=== PATIENT | female | born 1945 | race Caucasian/White ===

== ENCOUNTER 2019-08-16 15:36 | Observation (INO) | payer OTHER ==
[~2019-08-16] VITALS: Ht 152.4 cm; Wt 51.7 kg
[2019-08-16] MEDS ORDERED: METOPROLOL TARTRATE 25 MG TAB PO NR (16:45)
[2019-08-16] MEDS ORDERED: ASPIRIN 81 MG CHEW TAB PO NR (16:45)
[2019-08-16] MEDS ORDERED: METOPROLOL TARTRATE INJ 1 MG/ML VIAL IV ONE (17:15)
[2019-08-16] MEDS ORDERED: ENOXAPARIN SODIUM INJ 100 MG/ML SYR SC ONE (18:00)
[2019-08-16] MEDS ORDERED: NITROGLYCERIN 0.4 MG SUBL SL PRN (18:00)
[2019-08-16] MEDS ORDERED: ONDANSETRON HCL INJ 2MG/ML 2ML 2 MG/ML VIAL IV PRN (18:00)
[2019-08-16] MEDS ORDERED: ENOXAPARIN SOD INJ 60 MG/0.6 ML SYR SC NR (18:15)
[2019-08-16] MEDS ORDERED: METOPROLOL TARTRATE 50 MG TAB PO NR (18:15)
--- NOTE | 2019-08-16 18:16 | Diagnostic Imaging Report ---
EXAMINATION: PA and lateral views of the chest. COMPARISON: None CLINICAL HISTORY: Short of breath DISCUSSION: Lines/tubes: None. Lungs: Emphysema change. No consolidation or edema. Pleura: There is no pleural effusion or pneumothorax. Heart and mediastinum: The cardiomediastinal silhouette is normal. Bones and soft tissues: No acute bony abnormalities. IMPRESSION: No acute cardiopulmonary abnormalities. Signed by: Dr. Javier Reddy M.D. on 08/16/2019 6:14 PM
[2019-08-16 18:23] LABS: BASOPHILS % 0.4 % (0.0-1.0); EOSINOPHILS % 0.4 % (0.0-6.0); HEMATOCRIT 46.2 % (34.2-44.1); HEMOGLOBIN 13.9 g/dL (12.0-16.0); LYMPHOCYTES # (AUTO) 2.2 (1.0-3.2); LYMPHOCYTES % 29.6 % (18.0-39.1); MEAN CORPUSCULAR HEMOGLOBIN 28.1 pg (28-32); MEAN CORPUSCULAR HGB CONC 30.1 g/dL (31-35); MEAN CORPUSCULAR VOLUME 93.5 fL (81-99); MONOCYTES # (AUTO) 0.3 (0.2-0.8); MONOCYTES % 4.7 % (4.4-11.3); NEUTROPHILS # (AUTO) 4.7 (2.1-6.9); NEUTROPHILS % 64.6 % (38.7-80.0); PLATELET COUNT 294 x10e3/uL (140-360); RED BLOOD COUNT 4.94 x10e6/uL (3.6-5.1); RED CELL DISTRIBUTION WIDTH 14.4 % (11.7-14.4)
[2019-08-16 18:34] LABS: INR 0.92; PROTHROMBIN TIME 12.5 seconds (11.9-14.5)
[2019-08-16 18:35] LABS: PARTIAL THROMBOPLASTIN TIME 29.2 seconds (23.8-35.5)
[2019-08-16 18:43] LABS: ALANINE AMINOTRANSFERASE 28 IU/L (0-55); ALBUMIN 4.4 g/dL (3.5-5.0); ALBUMIN/GLOBULIN RATIO 1.2 (0.8-2.0); ALKALINE PHOSPHATASE 163 IU/L (40-150); ANION GAP 14.7 mmol/L (8-16); BLOOD UREA NITROGEN 21 mg/dL (7-26); BUN/CREATININE RATIO 25 (6-25); CARBON DIOXIDE 22 mmol/L (22-29); CHLORIDE 107 mmol/L (98-107); CREATINE KINASE 56 IU/L (29-168); CREATININE, SERUM 0.84 mg/dL (0.57-1.11); EST GLOMERULAR FILTRATION RATE > 60 ML/MIN (60-); GLUCOSE 112 mg/dL (74-118); MAGNESIUM 2.2 MG/DL (1.3-2.1); POTASSIUM 3.7 mmol/L (3.5-5.1); SODIUM 140 mmol/L (136-145)
[2019-08-16 19:04] LABS: THYROID STIMULATING HORMONE 1.252 uIU/mL (0.350-4.940)
[2019-08-16] MEDS: METOPROLOL TARTRATE 25 MG TAB PO SCH (19:04)
--- OUTSIDE RECORDS SUMMARY | 2019-08-16 19:44 | XMS REPORT ---
Author Author [facility] Organization [facility] Address Unknown Phone Unavailable Care Team Providers Care Camouflage Specialist Name Role Phone Maricarmen MATTSON Unavailable Unavailable Payers Payer Name Policy Type Policy Number Effective Date Expiration Date Problems This patient has no known problems. Allergies, Adverse Reactions, Alerts Allergy Name Allergy Type Status Severity Reaction(s) Onset Date Inactive Date Treating Clinician Comments codeine DA Active U 2018-04-04 00:00:00 codeine DA Active U 2016-06-01 00:00:00 Medications This patient has no known medications. Results Test Description Test Time Test Comments Text Results Atomic Results Result Comments CHEST 2 VIEWS 2019-08-16 18:13:00 [facility] [address] [place], [place] [address] Patient Name: JOSE CRUZ MR #: [id number] : 1945 Age/Sex: 74/F Req #: [id number] Adm Physician: Ordered by: YORDAN MATTSON MD Report #: [id number] Location: ER Room/Bed: Procedure: [id number] DX/CHEST 2 VIEWS Exam Date: 08/16/19 Exam Time: 1741 REPORT STATUS: Signed EXAMINATION: PA and lateral views of the chest. CO MPARISON: None CLINICAL HISTORY: Short of breath DISCUSSION: Lines/tubes: None. Lungs: Emphysema change. No consolidation or edema. Pleura: There is no pleural effusion or pneumothorax. Heart and mediastinum: The cardiomediastinal silhouette is normal. Bones and soft tissues: No acute bony abnormalities. IMPRESSION: No acute cardiopulmonary abnormalities. Signed by: Dr. Arnold Olivia M.D. on 08/16/2019 6:14 PM Dictated By: ARNOLD OLIVIA MD 13 Transcribed By: MARGO on 08/16/191813 COPY TO: YORDAN MATTSON MD
--- NOTE | 2019-08-16 20:00 | NUR ---
Received patient from ER.Patient offered a bed, safety and fall precaution maintained, patient is currently stable will continue o monitor.
[2019-08-16 20:45] VITALS: BP 114/67
[2019-08-16] MEDS ORDERED: FAMOTIDINE 20 MG/2 ML VIAL IV SCH (21:00)
[2019-08-16 22:51] VITALS: BP 104/73
[2019-08-17] VITALS: BP 91/57
--- NOTE | 2019-08-17 00:24 | Consultation ---
DATE OF CONSULTATION: 08/16/2019 Cardiac Consultation REASON FOR CONSULTATION: Atrial fibrillation with fast ventricular response. HISTORY OF PRESENT ILLNESS: A 74-year-old lady, who is poorly historian. The patient is in her usual status of health. She does have history of bipolar disorder and hyperlipidemia, in addition to some pain and she takes gabapentin for that. The patient had past history in 2018 for atrial fibrillation, placed on Xarelto and Cardizem, but she stopped taking both medication. She was in her usual status of health until approximately 3 or 4 days ago, probably at the 13 of August when she felt dizzy, her heart bounding, and she was not feeling well. She went today to [facility]. Her EKG showed atrial fibrillation with fast ventricular response, sent to the emergency room. Seen by Dr. Burk, who evaluated the patient and put a consultation for me. I visited with the patient in the emergency room. Her main problems are palpitation, dizziness, feeling weak, no energy. She denied having any chest pain. She is trying to minimize her complaints. Regarding her atrial fibrillation, she had another episode in 2018, but she is not taking any medication. Regarding her bipolar disorder, she is not taking her lamotrigine. She takes every now and then her Lipitor. Gabapentin, she takes it every night because of aches. Her cardiac symptoms are palpitation, dizziness, shortness of breath, feeling some stomach ache. She denied having awais angina. She denied having any pleuritic or pericarditic chest pain. REVIEW OF SYSTEMS: Extensive to all 14 systems, will be summarized for clarity. GENERAL: No fever, no chills. HEENT: No vision problem, but decreased hearing. PULMONARY: No shortness of breath. No cough. No hemoptysis. CARDIAC: As per above. GI: Bloating indigestion. No hematemesis. No melena. : Increased frequency of urination. MUSCULOSKELETAL: Aches and pain. NEUROLOGIC: No prior CVA. No localized weakness. PSYCHIATRIC: The patient does not take her medication for her bipolar disorder. SOCIAL HISTORY: She is a . She is nonsmoker and non-alcohol drinker. FAMILY HISTORY: Father, unknown medical history. Mother still alive. She is at 92. She had coronary artery bypass surgery a few years back. She does have pacemaker and atrial fibrillation. There are no sisters; 3 brothers, one brother of accident at the age 64. Another brother who is now in his late 50, he got coronary artery disease and some form of procedure. She does have 5 children. She lost one son to problems. HOME MEDICATIONS: 1. Lipitor 20 mg a day. 2. Lamotrigine 1200 mg twice a day. 3. Gabapentin 300 mg at bedtime. ALLERGIES: NONE. PAST MEDICAL HISTORY: 1. Bipolar. 2. Hypercholesterolemia. 3. Atrial fibrillation. 4. Tubal ligation. PHYSICAL EXAMINATION: GENERAL: A thin lady, in no acute distress. VITAL SIGNS: Blood pressure 120/80, heart rate of 140 per minute, irregularly irregular of atrial fibrillation, respiratory rate of 20. HEENT: Pupils are reactive. NECK: No elevation of jugular venous pulsation. No bruit. CHEST: Clear to auscultation and percussion. HEART: PMI at 5th left intercostal space. Irregularly irregular rate of atrial fibrillation, rate of 120. Normal first and second heart sound. ABDOMEN: Soft with good bowel sounds. EXTREMITIES: No cyanosis, no clubbing, no edema. NEUROLOGIC: No motor or sensory deficits. LABORATORY DATA: Not available. EKG showing atrial fibrillation with rapid ventricular response, ST-T segment changes. IMPRESSION AND PLAN: 1. Atrial fibrillation with rapid ventricular response. 2. Hyperlipidemia. 3. Bipolar disorder. 4. Poor compliance with medication. Cardiac salas, I would recommend the patient to be anticoagulated. We will give her metoprolol orally. We will check her echocardiogram. We will keep her on telemetry. We will check her lab data pending on her course further steps to be done. MD MARIETTA Arroyo/KYLERL /[id number]
[2019-08-17 04:00] VITALS: BP 109/65
[2019-08-17] MEDS: METOPROLOL TARTRATE 25 MG TAB PO SCH (05:19)
[2019-08-17 06:13] LABS: BASOPHILS % 0.5 % (0.0-1.0); EOSINOPHILS # (AUTO) 0.1 (0.0-0.4); EOSINOPHILS % 0.8 % (0.0-6.0); HEMATOCRIT 41.9 % (34.2-44.1); HEMOGLOBIN 13.2 g/dL (12.0-16.0); LYMPHOCYTES # (AUTO) 2.2 (1.0-3.2); LYMPHOCYTES % 33.2 % (18.0-39.1); MEAN CORPUSCULAR HEMOGLOBIN 28.5 pg (28-32); MEAN CORPUSCULAR HGB CONC 31.5 g/dL (31-35); MEAN CORPUSCULAR VOLUME 90.5 fL (81-99); MONOCYTES # (AUTO) 0.5 (0.2-0.8); MONOCYTES % 6.8 % (4.4-11.3); NEUTROPHILS # (AUTO) 3.9 (2.1-6.9); NEUTROPHILS % 58.5 % (38.7-80.0); PLATELET COUNT 270 x10e3/uL (140-360); RED BLOOD COUNT 4.63 x10e6/uL (3.6-5.1); RED CELL DISTRIBUTION WIDTH 14.4 % (11.7-14.4)
[2019-08-17 06:35] LABS: CREATINE KINASE 65 IU/L (29-168)
[2019-08-17 06:59] LABS: ALANINE AMINOTRANSFERASE 23 IU/L (0-55); ALBUMIN 3.7 g/dL (3.5-5.0); ALKALINE PHOSPHATASE 156 IU/L (40-150); ANION GAP 16.7 mmol/L (8-16); BLOOD UREA NITROGEN 19 mg/dL (7-26); BUN/CREATININE RATIO 23 (6-25); CALCIUM 9.8 mg/dL (8.4-10.2); CARBON DIOXIDE 23 mmol/L (22-29); CHLORIDE 107 mmol/L (98-107); CHOL/HDL RATIO 4.1 (3.0-3.6); CHOLESTEROL 197 MD/DL (0-199); CREATININE, SERUM 0.82 mg/dL (0.57-1.11); EST GLOMERULAR FILTRATION RATE > 60 ML/MIN (60-); GLUCOSE 99 mg/dL (74-118); HDL CHOLESTEROL 48 MG/DL (40-60); LDL CHOLESTEROL 131 MG/DL (60-130); POTASSIUM 4.7 mmol/L (3.5-5.1); SODIUM 142 mmol/L (136-145); TRIGLYCERIDES 88 MG/DL (0-149)
--- NOTE | 2019-08-17 07:18 | NUR ---
Patient endorsed to next shift for continuity of care.
--- NOTE | 2019-08-17 07:19 | NUR ---
received bedside change of shift report from PM nurse, pt awake, alert, answering questions appropriately, Afib rate of 76 on tele monitor. no signs of distress. all safety measures in place.
[2019-08-17 07:44] VITALS: BP 109/65
[2019-08-17 08:27] VITALS: BP 87/63
[2019-08-17] MEDS ORDERED: ASPIRIN 81 MG ENTERIC COATED PO SCH (09:00)
[2019-08-17] MEDS ORDERED: ONDANSETRON HCL 4 MG ORAL DISINTEGRATING TAB PO PRN (09:15)
[2019-08-17] MEDS ORDERED: FAMOTIDINE 20 MG TAB PO SCH (09:30)
[2019-08-17] MEDS ORDERED: APIXABAN 5 MG TABLET PO SCH (11:45)
[2019-08-17 12:20] VITALS: BP 116/69
[2019-08-17 14:20] LABS: CREATINE KINASE MB 2.5 ng/mL (0-5.0)
[2019-08-17] MEDS ORDERED: ELIQUIS5 MG PO (15:02)
[2019-08-17] MEDS ORDERED: LOPRESSOR25 MG PO (15:02)
--- NOTE | 2019-08-17 22:47 | History and Physical ---
PRIMARY CARE PHYSICIAN: At [facility]. Does not know the name of her PCP. CHIEF COMPLAINT: Dizziness and shortness of breath associated with new onset of atrial fibrillation. HISTORY OF PRESENT ILLNESS: This is a 74-year-old female with past medical history of high cholesterol, arthritis, bipolar, and atrial fibrillation 8 years ago, but is not currently on medication for atrial fibrillation or CVA prophylaxis, presented to her PCP at [facility] for a general checkup. She was noted to have shortness of breath and EKG was noted to be atrial fibrillation with RVR, so she was sent to the ER for further evaluation. She reports that has been feeling sick and feeling short of breath, and dizziness for the past 5 days or so. She denies any chest pain, nausea, vomiting, diaphoresis, blacking out, or fall. She states was diagnosed with atrial fibrillation when she had similar symptoms about 8 years ago, she was told to take heart medication, did not say what they were, but said were too expensive, so she stopped taking them. In the ER, she was given metoprolol and Lovenox, which regulated her heart and improved her heart rate, so Cardiology was consulted and admitted for further evaluation. PAST MEDICAL HISTORY: 1. High cholesterol. 2. Atrial fibrillation. 3. Bipolar. 4. Arthritis. SURGICAL HISTORY: 1. Tubal ligation. 2. Tonsillectomy. FAMILY MEDICAL HISTORY: Mother had heart disease and brother also of heart attack, but does not know of her father's medical history. SOCIAL HISTORY: She denies any tobacco, alcohol, or drug use. She is a . ALLERGIES: SHE HAS NO KNOWN DRUG ALLERGIES. REVIEW OF SYSTEMS: GENERAL: Fatigue. HEENT: No head trauma. LUNGS: Shortness of breath. No cough. CARDIOVASCULAR: No chest pain. GI: No nausea or vomiting. NEURO: Dizziness. MUSCULOSKELETAL: Generalized weakness. PSYCH: Calm. PHYSICAL EXAMINATION: VITAL SIGNS: Temperature 97.1, pulse is 90, respirations 18, blood pressure 116/69, pulse ox is 100% on room air. GENERAL: No acute distress. HEENT: Normocephalic, atraumatic. NECK: Supple. LUNGS: Clear to auscultation. CARDIOVASCULAR: Regular rate and rhythm. GI: Soft and nontender. NEUROLOGIC: Alert, awake, and oriented x3. MUSCULOSKELETAL: Moves all extremities. SKIN: Dry. PSYCH: Calm. LABORATORY DATA: WBC 6.57, hemoglobin 13.2, hematocrit 41.9, platelets 270. Sodium 142, potassium 4.7, CO2 of 23. BUN is 19, creatinine 0.82, magnesium 2.2. AST 19, ALT 23. Troponin x3 negative. BNP is 90.7, globulin 3.7, triglyceride 88, cholesterol 197, LDL 131, HDL 48. TSH 1.252. PT 12.5, INR 0.92, and APTT 29.2. IMAGING: Chest x-ray, no acute cardiopulmonary abnormalities. IMPRESSION: 1. Atrial fibrillation with rapid ventricular response. Troponin x3 were negative, now rate is controlled on beta-blockers. Cardiology has been consulted. Recommends Eliquis 5 b.i.d. for cerebrovascular accident prophylaxis. 2. High cholesterol. Continue on statin. 3. History of bipolar. Resume home medication. 4. History of arthritis. Resume home medicine. 5. Deep venous thrombosis prophylaxis. Currently on Eliquis. PLAN: May discharge home once cleared by Cardiology after echocardiogram. Dictated by LAURA Amos Marva Birch MD MY/MODL /[id number]
--- NOTE | 2019-08-18 05:58 | Discharge Summary ---
PCP: Dr. Nabor Welch. FINAL DIAGNOSES: 1. Atrial fibrillation with rapid ventricular rate. 2. High cholesterol. 3. History of bipolar. 4. History of arthritis. CONSULTANTS: Cardiology, Dr. Ron. PROCEDURES: None. HISTORY: Per HPI. HOSPITAL COURSE: A 74-year-old female admitted with atrial fibrillation, was not on medication. Echo was done and per Cardiology and was started on metoprolol 25 b.i.d. and Eliquis for CVA prophylaxis. She is currently sinus rhythm and feeling better. We will discharge home to followup with PCP and Cardiology in 1 to 2 weeks. PHYSICAL EXAMINATION: VITAL SIGNS: Temperature 97.1, pulse is 90, respiration 18, blood pressure 116/69, pulse ox is 100% on room air. GENERAL: No acute distress. HEENT: Normocephalic, atraumatic. LUNGS: Clear to auscultation. CARDIOVASCULAR: Regular rate and rhythm. GI: Soft and nontender. NEUROLOGIC: Alert, awake, and oriented x3. SKIN: Dry. CONDITION AT DISCHARGE: Stable. DISCHARGE MEDICATIONS: See medication reconciliation list. FOLLOWUP: With PCP and Cardiology in 1 to 2 weeks. TIME SPENT: Total time of discharge is 32 minutes. Dictated by LAURA Amos Marva Birch MD MY/MODL /[id number] cc: Neer[facility] Gen[facility]
== END 2019-08-17 16:19 | disposition home or self-care (01) ==
LOC: ER 15:36 → ERHOLD 18:58 → INTOOBSV 18:58 → MED/SURG 20:54
PROVIDERS: ADMIT Internal Medicine; ATTEND Internal Medicine
DX: I48.91 Unspecified atrial fibrillation (principal); E78.00 Pure hypercholesterolemia, unspecified; F31.9 Bipolar disorder, unspecified; M19.91 Primary osteoarthritis, unspecified site
CPT/HCPCS: 36415 ×2; 71046; 80053 ×2; 80061; 82550 ×2; 82553 ×2; 83735; 83880; 84443; 84484 ×2; 85025 ×2; 85610; 85730; 93005; 93306; 99284; G0378 ×2

== ENCOUNTER 2021-01-30 15:12 | Inpatient (IN) | payer OTHER ==
[~2021-01-30] VITALS: Ht 152.4 cm; Wt 49.2 kg
[~2021-01-30 15:12] MED LIST: ELIQUIS5 MG PO; LOPRESSOR25 MG PO
[2021-01-30 15:55] LABS: BASOPHILS % 0.8 % (0.0-1.0); EOSINOPHILS % 0.6 % (0.0-6.0); HEMATOCRIT 35.6 % (34.2-44.1); HEMOGLOBIN 10.2 g/dL (12.0-16.0); LYMPHOCYTES # (AUTO) 1.4 (1.0-3.2); LYMPHOCYTES % 26.1 % (18.0-39.1); MEAN CORPUSCULAR HEMOGLOBIN 25.4 pg (28-32); MEAN CORPUSCULAR HGB CONC 28.7 g/dL (31-35); MEAN CORPUSCULAR VOLUME 88.8 fL (81-99); MONOCYTES # (AUTO) 0.4 (0.2-0.8); MONOCYTES % 7.9 % (4.4-11.3); NEUTROPHILS # (AUTO) 3.4 (2.1-6.9); NEUTROPHILS % 64.4 % (38.7-80.0); PLATELET COUNT 258 x10e3/uL (140-360); RED BLOOD COUNT 4.01 x10e6/uL (3.6-5.1); RED CELL DISTRIBUTION WIDTH 17.8 % (11.7-14.4)
[2021-01-30] MEDS ORDERED: MORPHINE SULFATE INJ 2 MG/ML SYR ONE (16:04)
[2021-01-30 16:07] LABS: INR 1.27; PROTHROMBIN TIME 16.6 seconds (11.9-14.5)
[2021-01-30 16:08] LABS: PARTIAL THROMBOPLASTIN TIME 33.6 seconds (23.8-35.5)
[2021-01-30 16:15] LABS: ALBUMIN 4.1 g/dL (3.5-5.0); ALBUMIN/GLOBULIN RATIO 1.1 (0.8-2.0); ANION GAP 10.9 mmol/L (8-16); CALCIUM 9.5 mg/dL (8.4-10.2); CREATININE, SERUM 0.98 mg/dL (0.57-1.11); POTASSIUM 3.9 mmol/L (3.5-5.1)
[2021-01-30] MEDS ORDERED: ASPIRIN 81 MG CHEW TAB PO ONE (16:15)
[2021-01-30] MEDS ORDERED: MORPHINE SULFATE INJ 2 MG/ML SYR IV STA (16:20)
[2021-01-30 16:22] LABS: CREATINE KINASE MB 0.8 ng/mL (0-5.0)
[2021-01-30] MEDS ORDERED: ATROPINE SULFATE 0.1 MG/ML 10ML SYR ONE ×2 (16:22→22:01)
[2021-01-30] MEDS ORDERED: LAMOTRIGINE200 MG PO (16:33)
[2021-01-30] MEDS ORDERED: LIDOCAINE 4% PATCH TP PRN (17:00)
[2021-01-30] MEDS ORDERED: POTASSIUM CHLORIDE 20 MEQ TAB CR PO PRN (17:00)
[2021-01-30] MEDS ORDERED: ALBUTEROL/IPRATROPIUM 3 ML NEB NEB PRN (17:00)
[2021-01-30] MEDS ORDERED: LAMOTRIGINE 200 MG PO SCH (17:00)
[2021-01-30] MEDS ORDERED: ACETAMINOPHEN 325 MG TAB PO PRN (17:00)
[2021-01-30] MEDS ORDERED: DEXTROSE 50% SYRINGE 50 ML IV PRN (17:00)
[2021-01-30] MEDS ORDERED: HYDRALAZINE HCL 20 MG/ML VIAL IV PRN (17:00)
[2021-01-30] MEDS ORDERED: DOCUSATE SODIUM 100 MG CAP PO PRN (17:00)
[2021-01-30] MEDS ORDERED: DIPHENHYDRAMINE HCL 25 MG CAP PO PRN (17:00)
[2021-01-30] MEDS ORDERED: BENZONATATE 100 MG CAP PO PRN (17:00)
[2021-01-30] MEDS ORDERED: ONDANSETRON HCL INJ 2MG/ML 2ML 2 MG/ML VIAL IV PRN (17:00)
[2021-01-30] MEDS: LAMOTRIGINE 100 MG TAB PO SCH (17:44)
[2021-01-30 19:39] VITALS: BP 148/54
[2021-01-30 20:00] VITALS: BP 143/48
[2021-01-30 20:10] VITALS: BP 143/48
[2021-01-30] MEDS: DEXTROSE 5%/0.9% SOD CHL 1,000 ML IV SCH (20:40)
[2021-01-30 21:00] VITALS: BP 164/56
[2021-01-30] MEDS ORDERED: MELATONIN 5 MG TABLET PO PRN (21:00)
[2021-01-30 22:00] VITALS: BP 126/64
[2021-01-30 23:00] VITALS: BP 118/53
[2021-01-31] VITALS (26 sets, daily range): BP systolic 91–188; BP diastolic 46–147
[2021-01-31 04:54] LABS: BASOPHILS % 0.5 % (0.0-1.0); EOSINOPHILS % 0.9 % (0.0-6.0); HEMATOCRIT 31.9 % (34.2-44.1); HEMOGLOBIN 9.4 g/dL (12.0-16.0); LYMPHOCYTES % 23.8 % (18.0-39.1); MEAN CORPUSCULAR HEMOGLOBIN 25.6 pg (28-32); MEAN CORPUSCULAR HGB CONC 29.5 g/dL (31-35); MEAN CORPUSCULAR VOLUME 86.9 fL (81-99); MONOCYTES # (AUTO) 0.3 (0.2-0.8); MONOCYTES % 6.3 % (4.4-11.3); NEUTROPHILS # (AUTO) 2.9 (2.1-6.9); NEUTROPHILS % 68.3 % (38.7-80.0); PLATELET COUNT 211 x10e3/uL (140-360); RED BLOOD COUNT 3.67 x10e6/uL (3.6-5.1); RED CELL DISTRIBUTION WIDTH 17.5 % (11.7-14.4)
[2021-01-31 05:13] LABS: ALBUMIN 3.2 g/dL (3.5-5.0); ALBUMIN/GLOBULIN RATIO 1.1 (0.8-2.0); ANION GAP 11.6 mmol/L (8-16); CALCIUM 8.5 mg/dL (8.4-10.2); CHOL/HDL RATIO 2.6 (3.0-3.6); CREATININE, SERUM 0.82 mg/dL (0.57-1.11); POTASSIUM 3.6 mmol/L (3.5-5.1)
[2021-01-31 05:46] LABS: MAGNESIUM 2.1 MG/DL (1.3-2.1); PHOSPHORUS 2.5 MG/DL (2.3-4.7)
[2021-01-31 05:49] LABS: THYROID STIMULATING HORMONE 11.693 uIU/mL (0.350-4.940)
[2021-01-31 06:17] LABS: CREATINE KINASE MB 0.6 ng/mL (0-5.0)
[2021-01-31] MEDS ORDERED: ATROPINE SULFATE 0.1 MG/ML 10ML SYR IV PRN (07:00)
[2021-01-31] MEDS: PANTOPRAZOLE SOD 40 MG TABEC PO SCH ×2 (07:30→12:44)
[2021-01-31] MEDS ORDERED: MIDAZOLAM HCL 2 MG/2 ML VIAL ONE (08:17)
[2021-01-31] MEDS ORDERED: GENTAMICIN SULFATE 40 MG/ML 2 ML VIAL ONE (08:17)
[2021-01-31] MEDS ORDERED: FENTANYL CITRATE/PF 100MCG/2 ML INJ ONE (08:17)
[2021-01-31] MEDS ORDERED: LIDOCAINE HCL 2% LOCAL 20 ML VIAL ONE (08:17)
[2021-01-31] MEDS ORDERED: SODIUM CHLORIDE 0.9% 500ML 500 ML ONE (08:18)
[2021-01-31] MEDS ORDERED: Vancomycin IV 1 GM VIAL ONE (08:18)
[2021-01-31] MEDS ORDERED: IOPAMIDOL 300MG/ML 50ML INFUS..BTL IV ONE (08:18)
[2021-01-31] MEDS ORDERED: SODIUM CHLORIDE 0.9% 1000ML 2,000 ML ONE (08:19)
[2021-01-31] MEDS ORDERED: SODIUM CHLORIDE 0.9% 250ML 250 ML ONE (08:19)
[2021-01-31] MEDS: DEXTROSE 5%/0.9% SOD CHL 1,000 ML IV SCH ×2 (08:35→20:47)
[2021-01-31] MEDS ORDERED: CEFAZOLIN SOD 2 GM/NS 50ML 50 ML IV ONE (08:35)
[2021-01-31] MEDS ORDERED: LORAZEPAM INJ 2 MG/ML VIAL IV ONE ×2 (10:15→11:15)
[2021-01-31] MEDS: RISPERIDONE 0.5 MG TAB PO SCH ×2 (11:13→20:11)
[2021-01-31] MEDS: LAMOTRIGINE 100 MG TAB PO SCH ×2 (11:13→16:55)
[2021-01-31] MEDS ORDERED: ZIPRASIDONE 20 MG VIAL IM PRN ×2 (14:30→22:00)
[2021-01-31] MEDS: LEVETIRACETAM 500MG/5ML VIAL 1,000 MG in SODIUM CHLORIDE 0.9% 100 ML 100 ML IV SCH (17:32)
[2021-01-31 19:16] LABS: CREATINE KINASE MB 1.9 ng/mL (0-5.0)
[2021-02-01] VITALS (15 sets, daily range): BP systolic 108–163; BP diastolic 45–96
[2021-02-01] MEDS: LEVETIRACETAM 500MG/5ML VIAL 1,000 MG in SODIUM CHLORIDE 0.9% 100 ML 100 ML IV SCH ×2 (03:02→18:14)
[2021-02-01 04:51] LABS: BASOPHILS % 0.1 % (0.0-1.0); HEMATOCRIT 33.1 % (34.2-44.1); HEMOGLOBIN 9.8 g/dL (12.0-16.0); LYMPHOCYTES # (AUTO) 0.5 (1.0-3.2); LYMPHOCYTES % 6.8 % (18.0-39.1); MEAN CORPUSCULAR HEMOGLOBIN 25.6 pg (28-32); MEAN CORPUSCULAR HGB CONC 29.6 g/dL (31-35); MEAN CORPUSCULAR VOLUME 86.4 fL (81-99); MONOCYTES # (AUTO) 0.4 (0.2-0.8); MONOCYTES % 5.8 % (4.4-11.3); NEUTROPHILS # (AUTO) 6.1 (2.1-6.9); NEUTROPHILS % 86.9 % (38.7-80.0); PLATELET COUNT 194 x10e3/uL (140-360); RED BLOOD COUNT 3.83 x10e6/uL (3.6-5.1); RED CELL DISTRIBUTION WIDTH 17.5 % (11.7-14.4)
[2021-02-01 05:21] LABS: ANION GAP 10.1 mmol/L (8-16); CALCIUM 8.6 mg/dL (8.4-10.2); CREATININE, SERUM 0.8 mg/dL (0.57-1.11); POTASSIUM 3.1 mmol/L (3.5-5.1)
[2021-02-01] MEDS: PANTOPRAZOLE SOD 40 MG TABEC PO SCH (07:55)
[2021-02-01] MEDS: DEXTROSE 5%/0.9% SOD CHL 1,000 ML IV SCH (08:10)
[2021-02-01] MEDS: LAMOTRIGINE 100 MG TAB PO SCH ×2 (08:36→18:14)
[2021-02-01] MEDS: RISPERIDONE 0.5 MG TAB PO SCH ×2 (08:36→22:37)
[2021-02-01] MEDS ORDERED: POTASSIUM CHLORIDE 20 MEQ TAB CR PO ONE (13:30)
[2021-02-02] VITALS (10 sets, daily range): BP systolic 113–164; BP diastolic 58–108
[2021-02-02] MEDS: DEXTROSE 5%/0.9% SOD CHL 1,000 ML IV SCH ×2 (00:44→17:54)
[2021-02-02] MEDS: LEVETIRACETAM 500MG/5ML VIAL 1,000 MG in SODIUM CHLORIDE 0.9% 100 ML 100 ML IV SCH ×2 (04:11→17:54)
[2021-02-02] MEDS: RISPERIDONE 0.5 MG TAB PO SCH ×2 (10:25→22:23)
[2021-02-02] MEDS: PANTOPRAZOLE SOD 40 MG TABEC PO SCH (10:25)
[2021-02-02] MEDS: LAMOTRIGINE 100 MG TAB PO SCH ×2 (10:25→17:54)
[2021-02-02 11:50] LABS: BASOPHILS % 0.2 % (0.0-1.0); EOSINOPHILS % 0.5 % (0.0-6.0); HEMATOCRIT 33.7 % (34.2-44.1); HEMOGLOBIN 9.8 g/dL (12.0-16.0); LYMPHOCYTES # (AUTO) 0.7 (1.0-3.2); LYMPHOCYTES % 12.4 % (18.0-39.1); MEAN CORPUSCULAR HEMOGLOBIN 25.2 pg (28-32); MEAN CORPUSCULAR HGB CONC 29.1 g/dL (31-35); MEAN CORPUSCULAR VOLUME 86.6 fL (81-99); MONOCYTES # (AUTO) 0.4 (0.2-0.8); MONOCYTES % 7.1 % (4.4-11.3); NEUTROPHILS # (AUTO) 4.6 (2.1-6.9); NEUTROPHILS % 79.5 % (38.7-80.0); PLATELET COUNT 198 x10e3/uL (140-360); RED BLOOD COUNT 3.89 x10e6/uL (3.6-5.1); RED CELL DISTRIBUTION WIDTH 17.7 % (11.7-14.4)
[2021-02-02 12:12] LABS: ANION GAP 8.9 mmol/L (8-16); CALCIUM 8.4 mg/dL (8.4-10.2); CREATININE, SERUM 0.72 mg/dL (0.57-1.11); POTASSIUM 3.9 mmol/L (3.5-5.1)
[2021-02-03] VITALS (8 sets, daily range): BP systolic 117–164; BP diastolic 58–73
[2021-02-03] MEDS: DEXTROSE 5%/0.9% SOD CHL 1,000 ML IV SCH (01:08)
[2021-02-03] MEDS: LEVETIRACETAM 500MG/5ML VIAL 1,000 MG in SODIUM CHLORIDE 0.9% 100 ML 100 ML IV SCH (03:25)
[2021-02-03] MEDS: PANTOPRAZOLE SOD 40 MG TABEC PO SCH (11:00)
[2021-02-03] MEDS: LAMOTRIGINE 100 MG TAB PO SCH ×2 (11:00→16:38)
[2021-02-03] MEDS: RISPERIDONE 0.5 MG TAB PO SCH ×2 (11:00→21:00)
[2021-02-03] MEDS: LEVETIRACETAM 500 MG TAB PO SCH (16:38)
[2021-02-04] VITALS (7 sets, daily range): BP systolic 97–170; BP diastolic 55–72
[2021-02-04] MEDS: PANTOPRAZOLE SOD 40 MG TABEC PO SCH (07:30)
[2021-02-04] MEDS: LAMOTRIGINE 100 MG TAB PO SCH ×2 (08:22→17:21)
[2021-02-04] MEDS: LEVETIRACETAM 500 MG TAB PO SCH ×2 (09:00→17:20)
[2021-02-04] MEDS ORDERED: MINOCYCLINE HCL 50 MG CAP PO SCH (09:00)
[2021-02-04] MEDS: RISPERIDONE 0.5 MG TAB PO SCH (09:00)
== END 2021-02-04 19:30 | disposition home or self-care (01) | DRG 242 ==
LOC: ER 15:50 → ERHOLD 16:26 → ICU 19:15 → MED/SURG2 02-01 15:03
PROVIDERS: ADMIT Internal Medicine; ATTEND Internal Medicine
PROC: 0JH606Z Insertion of Pacemaker, Dual Chamber into Chest Subcutaneous Tissue and Fascia, Open Approach (ICD-10-PCS; principal; 2021-01-31)
PROC: 02HK3JZ Insertion of Pacemaker Lead into Right Ventricle, Percutaneous Approach (ICD-10-PCS; 2021-01-31)
PROC: 02H63JZ Insertion of Pacemaker Lead into Right Atrium, Percutaneous Approach (ICD-10-PCS; 2021-01-31)
DX: I49.5 Sick sinus syndrome (principal); G93.41 Metabolic encephalopathy; I10 Essential (primary) hypertension; F03.90 Unspecified dementia, unspecified severity, without behavioral disturbance, psychotic disturbance, mood disturbance, and anxiety; F31.9 Bipolar disorder, unspecified; G40.909 Epilepsy, unspecified, not intractable, without status epilepticus; I48.0 Paroxysmal atrial fibrillation; Z79.01 Long term (current) use of anticoagulants
CPT/HCPCS: 33208; 36415; 70450; 71045; 75820; 80048; 80053; 80061; 82140; 82542; 82550; 82553; 83036; 83735; 84100; 84146; 84443; 84484; 85025; 85610; 85730; 93005; 95812; 97139; 99251; 99284; C1769; C1785; C1898; J0360; J0690; J1580; J2001; J2060; J2250; J2270; J2405; J3010; J3370; J3486; J7030; J7040; J7042; J7050; U0002

== ENCOUNTER 2021-03-08 08:53 | Emergency (ER) | payer OTHER ==
[~2021-03-08] VITALS: Ht 152.4 cm; Wt 49.0 kg
[~2021-03-08 08:53] MED LIST changes: +LAMOTRIGINE200 MG PO
== END 2021-03-08 16:08 | disposition home or self-care (01) ==
LOC: ER 08:56
DX: M25.551 Pain in right hip (principal); W01.0XXA Fall on same level from slipping, tripping and stumbling without subsequent striking against object, initial encounter; Y93.01 Activity, walking, marching and hiking; Y92.008 Other place in unspecified non-institutional (private) residence as the place of occurrence of the external cause; I48.91 Unspecified atrial fibrillation
CPT/HCPCS: 99283